=== PATIENT | male | born 1975 | race African-American/Black ===

== ENCOUNTER 2020-11-06 09:30 | Inpatient (IN) | payer SELFPAY ==
[~2020-11-06] VITALS: Ht 188 cm; Wt 103.4 kg
[2020-11-06] MEDS ORDERED: SODIUM CHLORIDE 0.9% 1,000 ML IV ONE (10:00)
[2020-11-06] MEDS ORDERED: KETOROLAC 15MG/ML VIAL IV ONE (10:00)
[2020-11-06] MEDS ORDERED: METOCLOPRAMIDE HCL 10MG/2ML VIAL IV ONE (10:00)
[2020-11-06 10:11] LABS: BASOPHILS % 0.4 % (0.0-2.0); EOSINOPHILS % 0.1 % (0.0-5.0); HEMATOCRIT. 41.7 % (42.0-52.0); LYMPHOCYTES % 16.5 % (20.0-50.0); MEAN CORPUSCULAR HEMOGLOBIN 31.1 pg (28.0-32.0); MEAN CORPUSCULAR VOLUME 92.6 fL (80.0-94.0); MEAN PLATELET VOLUME 9.4 fl (7.4-10.4); PLATELET 155 x1000/uL (130-400); RED BLOOD CELL COUNT 4.51 mill/uL (4.7-6.1); RED CELL DISTRIBUTION WIDTH 13.7 % (11.6-14.6)
[2020-11-06 10:18] LABS: CHLORIDE 102 mEq/L (98-107)
[2020-11-06] MEDS ORDERED: AZITHROMYCIN 500 MG TABLET PO ONE (12:00)
[2020-11-06] MEDS ORDERED: LABETALOL 5MG/ML SYR 20 MG/4 ML SYRINGE IV ONE (12:15)
[2020-11-06] MEDS ORDERED: CEFTRIAXONE 1 G PREMIX 50 ML IV ONE (12:30)
[2020-11-06] MEDS ORDERED: CLONIDINE 0.1MG TABLET PO PRN (14:45)
[2020-11-06] MEDS ORDERED: ONDANSETRON HCL 4MG/2ML INJ IV PRN (14:45)
[2020-11-06] MEDS ORDERED: NITROGLYCERIN 0.4MG TABLET SL SL PRN (14:45)
[2020-11-06] MEDS ORDERED: HYDRALAZINE 20MG/ML VIAL IV PRN (14:45)
[2020-11-06] MEDS: AMLODIPINE 10MG TABLET PO SCH (15:39)
[2020-11-06 16:15] VITALS: BP 134/80
[2020-11-06 16:43] VITALS: BP 134/80
[2020-11-06] MEDS: ACETAMINOPHEN 325MG TABLET PO PRN ×2 (17:25→23:50)
[2020-11-06 20:00] VITALS: BP 136/87
[2020-11-06] MEDS: HEPARIN 5000 UNITS/ML VIAL SUBCUT SCH (20:33)
[2020-11-07] VITALS: BP 145/92
[2020-11-07] MEDS: ACETAMINOPHEN 325MG TABLET PO PRN ×4 (02:12→20:28)
[2020-11-07 04:00] VITALS: BP 176/95
[2020-11-07 06:11] LABS: BASOPHILS % 0.6 % (0.0-2.0); CHLORIDE 100 mEq/L (98-107); HEMATOCRIT. 43.5 % (42.0-52.0); HEMOGLOBIN. 14.6 g/dL (14.0-18.0); LYMPHOCYTES % 17.8 % (20.0-50.0); MEAN CORPUSCULAR VOLUME 92.1 fL (80.0-94.0); MEAN PLATELET VOLUME 9.1 fl (7.4-10.4); NEUTROPHILS % 69.6 % (40.0-76.0); RED BLOOD CELL COUNT 4.72 mill/uL (4.7-6.1); RED CELL DISTRIBUTION WIDTH 13.8 % (11.6-14.6)
[2020-11-07 06:19] LABS: LDL CHOLESTEROL 66 mg/dL (5-100)
[2020-11-07 06:21] LABS: HDL CHOLESTEROL 72 mg/dL (40-59)
[2020-11-07 08:00] VITALS: BP 155/85
[2020-11-07] MEDS ORDERED: LOSARTAN POTASSIUM 25 MG TABLET PO SCH (09:00)
[2020-11-07] MEDS: AMLODIPINE 10MG TABLET PO SCH (09:05)
[2020-11-07] MEDS: HEPARIN 5000 UNITS/ML VIAL SUBCUT SCH ×2 (09:06→20:28)
[2020-11-07] MEDS ORDERED: POTASSIUM CHLORIDE 20MEQ TABLET SR PO NR (11:30)
[2020-11-07 11:53] VITALS: BP 114/87
[2020-11-07 16:00] VITALS: BP 162/89
[2020-11-07 16:40] LABS: PLATELET 132 x1000/uL (130-400)
[2020-11-07] MEDS: LOSARTAN POTASSIUM 25 MG TABLET PO SCH (17:27)
[2020-11-07 20:00] VITALS: BP 160/97
[2020-11-08] VITALS: BP 128/95
[2020-11-08] MEDS: ACETAMINOPHEN 325MG TABLET PO PRN ×4 (00:37→19:37)
[2020-11-08] MEDS: TRAZODONE HCL 50MG TABLET PO PRN ×2 (00:44→23:37)
[2020-11-08 04:00] VITALS: BP 145/94
[2020-11-08 07:19] LABS: BASOPHILS % 0.4 % (0.0-2.0); EOSINOPHILS % 0.2 % (0.0-5.0); HEMATOCRIT. 46.1 % (42.0-52.0); HEMOGLOBIN. 15.6 g/dL (14.0-18.0); LYMPHOCYTES % 23.8 % (20.0-50.0); MEAN CORPUSCULAR HEMOGLOBIN 31.3 pg (28.0-32.0); MEAN CORPUSCULAR VOLUME 92.2 fL (80.0-94.0); MONOCYTES % 12.7 % (2.0-8.0); NEUTROPHILS % 62.9 % (40.0-76.0); PLATELET 170 x1000/uL (130-400); RED CELL DISTRIBUTION WIDTH 13.6 % (11.6-14.6)
[2020-11-08 07:57] LABS: CHLORIDE 100 mEq/L (98-107)
[2020-11-08 08:00] VITALS: BP 121/73
[2020-11-08 08:15] LABS: CLARITY URINE CLEAR (CLEAR); COLOR URINE DK YELLOW (YELLOW); KETONES URINE TRACE (NEGATIVE); LEUKOCYTE ESTERASE URINE NEGATIVE (NEGATIVE); NITRITE URINE NEGATIVE (NEGATIVE); OCCULT BLOOD URINE NEGATIVE (NEGATIVE); PROTEIN URINE TRACE (NEGATIVE); SPECIFIC GRAVITY URINE 1.025 (1.005-1.030)
[2020-11-08] MEDS: LOSARTAN POTASSIUM 25 MG TABLET PO SCH ×2 (09:12→16:52)
[2020-11-08] MEDS: HEPARIN 5000 UNITS/ML VIAL SUBCUT SCH ×2 (09:12→20:39)
[2020-11-08] MEDS: AMLODIPINE 10MG TABLET PO SCH (09:12)
[2020-11-08 09:18] LABS: SODIUM URINE RANDOM 54 mEq/L
[2020-11-08 09:25] LABS: *AMPHETAMINES SCREEN URINE NEGATIVE (NEGATIVE); *BARBITURATES SCREEN URINE NEGATIVE (NEGATIVE); *BENZODIAZEPINES SCREEN URINE NEGATIVE (NEGATIVE); *COCAINE SCREEN URINE NEGATIVE (NEGATIVE); METHADONE URINE SCREEN NEGATIVE (NEGATIVE)
[2020-11-08 09:26] LABS: CANNABINOID URINE SCREEN PRESUMTIVE POSITIVE (NEGATIVE); OPIATES URINE SCREEN NEGATIVE (NEGATIVE); PHENCYCLIDINE URINE SCREEN NEGATIVE (NEGATIVE)
[2020-11-08 12:00] VITALS: BP 123/84
[2020-11-08 16:00] VITALS: BP 133/88
[2020-11-08 20:00] VITALS: BP 128/81
[2020-11-09] VITALS: BP 151/86
[2020-11-09] MEDS: ACETAMINOPHEN 325MG TABLET PO PRN ×2 (01:52→09:17)
[2020-11-09 04:00] VITALS: BP 135/91
[2020-11-09 08:00] VITALS: BP 143/85
[2020-11-09 08:11] LABS: BASOPHILS % 0.4 % (0.0-2.0); EOSINOPHILS % 0.1 % (0.0-5.0); HEMOGLOBIN. 15.5 g/dL (14.0-18.0); LYMPHOCYTES % 25.9 % (20.0-50.0); MEAN CORPUSCULAR HEMOGLOBIN 31.1 pg (28.0-32.0); MEAN CORPUSCULAR VOLUME 92.2 fL (80.0-94.0); MEAN PLATELET VOLUME 10.5 fl (7.4-10.4); MONOCYTES % 13.6 % (2.0-8.0); PLATELET 175 x1000/uL (130-400); RED BLOOD CELL COUNT 4.99 mill/uL (4.7-6.1); RED CELL DISTRIBUTION WIDTH 13.6 % (11.6-14.6)
[2020-11-09 08:37] LABS: CHLORIDE 96 mEq/L (98-107)
[2020-11-09] MEDS: LOSARTAN POTASSIUM 25 MG TABLET PO SCH (09:17)
[2020-11-09] MEDS: AMLODIPINE 10MG TABLET PO SCH (09:17)
[2020-11-09] MEDS: HEPARIN 5000 UNITS/ML VIAL SUBCUT SCH (09:18)
[2020-11-09] MEDS ORDERED: LEVO500T89 MT (11:35)
[2020-11-09 12:00] VITALS: BP 137/87
[2020-11-09] MEDS ORDERED: LOSA100T32 MT (12:13)
[2020-11-09 13:11] VITALS: BP 137/87
== END 2020-11-09 14:28 | disposition home or self-care (01) | DRG 54 ==
LOC: ER 09:30 → 7WST 13:10 → EDBEDREQTM 13:15 → EDBEDREQ 13:15 → ENRESERV 15:10 → 5WST 23:30
PROVIDERS: ADMIT Internal Medicine; ATTEND Internal Medicine
DX: R51.9 Headache, unspecified (principal); I47.2 Ventricular tachycardia; I10 Essential (primary) hypertension; E87.1 Hypo-osmolality and hyponatremia; R50.9 Fever, unspecified; E66.9 Obesity, unspecified; R91.8 Other nonspecific abnormal finding of lung field; Z20.822 Contact with and (suspected) exposure to COVID-19; Z79.899 Other long term (current) drug therapy; Z68.29 Body mass index [BMI] 29.0-29.9, adult
CPT/HCPCS: 36415; 71045; 80053; 80061; 80305; 81003; 82570; 83605; 83735; 83880; 83935; 84145; 84300; 84484; 85025; 93005; 93306; 99285; J0360; J0696; J1644; J1885; J2765; J3490; J7030; U0003